=== PATIENT | male | born 1985 ===

== ENCOUNTER 2021-10-07 13:30 | Emergency (ER) | payer BC | END 2021-10-07 15:03 | disposition home or self-care (01) | LOC: DL.ED 13:30 | DX: S93.401A Sprain of unspecified ligament of right ankle, initial encounter (principal); Z88.0 Allergy status to penicillin; W00.0XXA Fall on same level due to ice and snow, initial encounter | CPT/HCPCS: 29515; 73610-RT; 99283-25 ==